=== PATIENT | female | born 1950 | race Caucasian/White ===

== ENCOUNTER → 2023-12-30 | Emergency (ER) | payer OTHER, BC ==
[~2023-12-30] MED LIST: FAMOTIDINE 20 MG/2 ML VIAL IV ONE; FOLIC ACID 5 MG/ML VIAL ONE; NA CHLORIDE 0.9% 1,000 ML ONE; TENECTEPLASE 50 MG/10 ML VIAL IV ONE
[2023-12-30 18:29] LABS: Absolute Eosinophils 0.1 K/uL (0-0.5); Absolute Lymphocytes (CBC) 1.6 K/uL (0.7-4.9); Basophils % 0.5 % (0-1.3); Eosinophils % 2.8 % (0-4.4); Hematocrit 38.3 % (36.0-45.0); Lymphocytes % 33.5 % (15.3-44.8); MCV 94.1 fL (80-100); MPV 7.3 fL (7.6-11.3); Platelets 235 thou/uL (152-406); RBC Red Blood Cell Count 4.07 M/uL (3.86-4.86)
[2023-12-30 18:37] LABS: Protime INR 0.97
--- NOTE | 2023-12-30 18:39 | ER ---
Nurse's Notes [facility] Name: Marita Roque Age: 73 yrs Sex: Female : 1950 Arrival Date: 12/30/2023 Time: 17:47 Bed 3 Private MD: Diagnosis: acute cerebrovascular accident Presentation: 12/29 18:12 Chief complaint: Patient states: pt was watching TV with her and suddenly pt as6 could not see parts of the tv. pt reports left arm sensation change. ERP notified of symptoms, code stroke called. symptoms started at 1630. Coronavirus screen: At this time, the client does not indicate any symptoms associated with coronavirus-19. Ebola Screen: No symptoms or risks identified at this time. Initial Sepsis Screen: Does the patient meet any 2 criteria? No. Patient's initial sepsis screen is negative. Does the patient have a suspected source of infection? No. Patient's initial sepsis screen is negative. Risk Assessment: Do you want to hurt yourself or someone else? Patient reports no desire to harm self or others. Onset of symptoms was December 30, 2023 at 16:30. 18:12 Acuity: JOSELYN 2 as6 18:12 Method Of Arrival: Ambulatory as6 Triage Assessment: 18:15 General: Appears in no apparent distress. Behavior is calm, cooperative, appropriate bp for age. Pain: Denies pain. Neuro: Level of Consciousness is awake, alert, obeys commands, Oriented to Appropriate for age. Historical: - Allergies: 18:11 Betadine; as6 18:11 Tetanus-Diphtheria Toxoids-Td; as6 18:11 Latex, Natural Rubber; as6 - PMHx: 18:11 breast cancer; lung cancer; as6 - PSHx: 18:11 breast; lung; as6 - Immunization history:: Adult Immunizations up to date. - Social history:: Smoking status: Patient denies any tobacco usage or history of. Screenin:12 [facility] ED Fall Risk Assessment (Adult) History of falling in the last 3 months, bp including since admission No falls in past 3 months (0 pts). Abuse screen: Denies threats or abuse. Denies injuries from another. Nutritional screening: No deficits noted. Tuberculosis screening: No symptoms or risk factors identified. Assessment: 18:15 Reassessment: CODE STROKE CALLED. bp 18:30 Reassessment: PT CONSENTED FOR TNKASE. TRANSFER INITIATED. bp Vital Signs: 18:00 BP 168 / 105; Pulse 78; Resp 18 S; Temp 97.6(TE); Pulse Ox 98% on R/A; Weight 65.77 kg bp (R); Height 5 ft. 4 in. (R); Pain 0/10; 18:45 BP 174 / 83; Pulse 70; Resp 16; Temp 98; Pulse Ox 99% ; jw7 20:18 BP 175 / 76; Pulse 71; Resp 18 S; Pulse Ox 99% on R/A; as6 18:00 Body Mass Index 24.89 (65.77 kg, 162.56 cm) bp 18:00 Pain Scale: Adult bp NIH Stroke Scale Scores: 18:09 NIHSS Score: 3 sb4 ED Course: 17:52 Patient arrived in ED. ra3 17:55 Tere Bledsoe PA-C is PHCP. sb4 17:55 Jay Chung MD is Attending Physician. sb4 17:59 Bertin Valdez, FRANCHESKA is Primary Nurse. bp 18:00 Arm band placed on. as6 18:[address] via stretcher. hb 18:11 Inserted saline lock: 20 gauge in right antecubital area, using aseptic technique. bp Blood collected. 18:12 Patient has correct armband on for positive identification. bp 18:15 Triage completed. as6 18:22 CT Head Angio In Process Unspecified. EDMS 18:22 CT Neck Angio In Process Unspecified. EDMS 18:22 CT Stroke Brain w/o Contrast In Process Unspecified. EDMS 18:25 initiated a transfer with Silvestre from the [facility]. eb 18:37 Stroke CXR 1 View In Process Unspecified. EDMS 18:[address] Gillis to [facility] ER. rv1 18:46 Pt request to be transferred to [facility], provider notified. rv1 18:50 Initiated transfer with Anne at [facility]. rv1 19:[address] De La Rosa to [facility] Neuro ICU #[id number]. rv1 19:54 Called Kandace with EMS, given 10-15 ETA. rv1 20:18 Provided Education on: need for transfer . as6 20:19 No provider procedures requiring assistance completed. Patient transferred, IV remains as6 in place. Administered Medications: 18:45 Drug: NS 0.9% IV 1000 ml IV at 1 bolus Per protocol; 1000 mL bolus Route: IV; Rate: 1 bp bolus; Site: right antecubital; 20:19 Follow up: Response: No adverse reaction; IV Status: Completed infusion; IV Intake: as6 1000ml 18:45 Drug: foLIC Acid IVPB 1 mg IVPB once Route: IVPB; Site: right antecubital; bp 20:19 Follow up: Response: No adverse reaction as6 20:19 Follow up: Response: No adverse reaction; IV Status: Completed infusion; IV Intake: [id number] 18:45 Drug: TNK FOR STROKE - Tenecteplase IV 0.25 mg/kg IV at per protocol once; MAX bp DOSE 25 mg, IVP over 5 seconds {Co-Signature: ko1 (Julianna Mccauley RN).} Route: IV; Rate: per protocol; Site: right antecubital; 20:20 Follow up: Response: No adverse reaction; IV Status: Completed infusion; IV Intake: 3ml as6 18:45 Drug: Famotidine IVP 20 mg IVP once; dilute with 10 mL 0.9% NaCl; give over 2 minutes bp Route: IVP; Site: right antecubital; 20:19 Follow up: Response: No adverse reaction as6 Medication: 20:18 VIS not applicable for this client. as6 Intake: 20:19 IV: 10ml; Total: 10ml. as6 20:19 IV: 1000ml; Total: 1010ml. as6 20:20 IV: 3ml; Total: 1013ml. as6 Outcome: 18:38 ER care complete, transfer ordered by MD. mann 20:18 Transferred by ground EMS to [facility], Transfer form completed. as6 X-rays sent w/ patient. 20:18 Condition: stable 20:18 Instructed on the need for transfer, 20:21 Patient left the ED. as6 NIH Stroke Scale - NIH Stroke Score Date: 12/30/2023 Time: 18:09 Total Score = 3 10. Dysarthria (speech clarity - read or repeat words) - 0(Normal) 11. Extinction and Inattention (visual/tactile/auditory/spatial/personal) - 0(No abnormality) 1a. Level of Consciousness (LOC) - 0(Alert) 1b. Level of Consciousness (LOC) (Month \T\ Age) - 0(Both) 1c. LOC Commands (Open \T\ Closes Eyes/Pen Rider) - 0(Both) 2. Best Gaze (Lateral Gaze Paresis) - 0(Normal) 3. Visual Field Loss - 2(Complete hemianopia) 4. Facial Palsy - 0(Normal) 5a. Left Arm: Motor (10-second hold) - 0(No drift) 5b. Right Arm: Motor (10-second hold) - 0(No drift) 6a. Left Leg: Motor (5-second hold - always test supine) - 0(No drift) 6b. Right Leg: Motor (5-second hold - always test supine) - 0(No drift) 7. Limb Ataxia (finger/nose \T\ heel/macias - test with eyes open) - 0(Absent) 8. Sensory Loss (pinprick arms/legs/face) - 1(Mild to moderate loss) 9. Best Language: Aphasia (description/naming/reading) - 0(No aphasia) Initials: sb4 Signatures: Dispatcher [employer] EDMS Jennie Green RN FRANCHESKA hb Bertin Valdez RN RN bp Pamela Jim eb Carlos Valle RN RN as6 Eva Howard, RN RN [id number] Tere Bledsoe, FRANCINE PARich sb4 Annie Moreno rv1 Mansi Kilgore ra3 Julianna Mccauley RN ko1 Corrections: (The following items were deleted from the chart) 18:44 18:00 BP 168 / 105; Pulse 78bpm; Resp 18bpm; Spontaneous; Pulse Ox 98% RA; Temp bp 97.6F Temporal; 65.77 kg Reported; Height 5 ft. 4 in. Reported; BMI: 24.8; Pain 0/10, Adult; as6 19:02 16:00 Reassessment: CODE STROKE CALLED bp 19:40 18:45 BP 174 / 8; Pulse 70bpm; Resp 16bpm; Pulse Ox 99%; Temp 98F; bp jw7 19:58 19:57 Initiated transfer with Anne [facility] rv1 rv1
--- NOTE | 2023-12-30 18:39 | EDPHYS ---
Physician Documentation [facility] Name: Marita Roque Age: 73 yrs Sex: Female : 1950 Arrival Date: 12/30/2023 Time: 17:47 Bed 3 Private MD: ED Physician Jay Chung HPI: 12/29 18:12 This 73 yrs old Female presents to ER via Unassigned with complaints of stroke like sb4 symptoms. 18:13 The patient's problem is reported as paresthesias, in left upper extremity, visual sb4 difficulty, decreased visual field. Onset: The symptoms/episode began/occurred 1.5 hour(s) ago. Duration: The episode is continuous. Context: the episode(s) was witnessed, by family, , symptoms became apparent at 16:30. occurred at home, occurred while the patient was at rest. The symptoms are alleviated by nothing. The symptoms are aggravated by nothing. Associated signs and symptoms: The patient has no apparent associated signs or symptoms. Patient's baseline: Neuro: alert and fully oriented, Motor: no deficits, Ambulation: walks without assistance, Speech: normal. The patient has not experienced similar symptoms in the past. The patient has not recently seen a physician. Historical: - Allergies: 18:11 Betadine; as6 18:11 Tetanus-Diphtheria Toxoids-Td; as6 18:11 Latex, Natural Rubber; as6 - PMHx: 18:11 breast cancer; lung cancer; as6 - PSHx: 18:11 breast; lung; as6 - Immunization history:: Adult Immunizations up to date. - Social history:: Smoking status: Patient denies any tobacco usage or history of. ROS: 18:13 Constitutional: Negative for fever, chills, and weight loss, sb4 18:13 Neuro: Positive for numbness, tingling, visual changes, 18:13 All other systems are negative, Exam: 18:13 Constitutional: This is a well developed, well nourished patient who is awake, alert, sb4 and in no acute distress. Head/Face: Normocephalic, atraumatic. ENT: Mucous membranes moist. Cardiovascular: Regular rate and rhythm with a normal S1 and S2. Respiratory: Lungs have equal breath sounds bilaterally, clear to auscultation and percussion. No rales, rhonchi or wheezes noted. No increased work of breathing, no retractions or nasal flaring. Abdomen/GI: Soft, non-tender, no distension. Skin: Warm, dry with normal turgor. Normal color with no rashes, no lesions, and no evidence of cellulitis. MS/ Extremity: Pulses equal, no cyanosis. Neurovascular intact. Full, normal range of motion. 18:13 Eyes: Pupils: equal, round, and reactive to light and accomodation, Extraocular movements: intact throughout, 18:18 Radiologist reports: negative sb4 18:21 Neuro: Orientation: is normal, to person, place, time \T\ situation. Mentation: is sb4 normal, appropriate for stated age, Memory: is normal, appropriate for stated age, Cranial nerves: CN I not tested, bitemporal hemianopia noted, extraocular movements are intact, Facial palsy and sensory deficits are absent. no gross hearing deficit,. Nystagmus is absent. Speech is clear and appropriate. Motor: is normal, moves all fours, Sensation: numbness, tingling, that is mild, of the left arm, Gait: is steady, 19:06 ECG was reviewed by the Attending Physician. sarah Vital Signs: 18:00 BP 168 / 105; Pulse 78; Resp 18 S; Temp 97.6(TE); Pulse Ox 98% on R/A; Weight 65.77 kg bp (R); Height 5 ft. 4 in. (R); Pain 0/10; 18:45 BP 174 / 83; Pulse 70; Resp 16; Temp 98; Pulse Ox 99% ; jw7 20:18 BP 175 / 76; Pulse 71; Resp 18 S; Pulse Ox 99% on R/A; as6 18:00 Body Mass Index 24.89 (65.77 kg, 162.56 cm) bp 18:00 Pain Scale: Adult bp NIH Stroke Scale Scores: 18:09 NIHSS Score: 3 sb4 MDM: 17:56 Patient medically screened. sb4 18:19 Management of patient was discussed with the following: Respite Care Provider: Dr. Cruz, sb4 recommends administration of TNK. 18:40 Differential diagnosis: CVA, TIA, metabolic disorder, drug effects. Data reviewed: sb4 vital signs, nurses notes, lab test result(s), EKG, radiologic studies, I have discussed the patient's presentation/case with the attending Emergency Department Physician;. Consideration of Admission/Observation Patient was admitted/placed on observation. Historians other than the Patient: Spouse/Significant Other: . Counseling: I had a detailed discussion with the patient and/or guardian regarding the historical points, exam findings, and any diagnostic results supporting the discharge/admit diagnosis, the presence of at least one elevated blood pressure reading (>120/80) during this emergency department visit, radiology results, the need to transfer to another facility, for higher level of care, [facility] does not immediately have the required specialist. 12/30 17:11 ED course: patient requested to be transferred to [facility]. sb4 12/29 18:05 Order name: Basic Metabolic Panel; Complete Time: 18:47 sb4 12/29 18:05 Order name: CBC with Diff; Complete Time: 18:37 sb4 12/29 18:05 Order name: Hepatic Function; Complete Time: 18:47 sb4 12/29 18:05 Order name: High Sensitivity Troponin; Complete Time: 18:47 sb4 12/29 18:05 Order name: Magnesium; Complete Time: 18:47 sb4 12/29 18:05 Order name: Protime (+inr); Complete Time: 18:39 sb4 12/29 18:05 Order name: Ptt, Activated; Complete Time: 18:39 sb4 12/29 18:05 Order name: UDS; Complete Time: 20:20 sb4 12/29 18:23 Order name: Urine Culture [facility] 12/29 19:44 Order name: CREATININE WHOLE BLOOD; Complete Time: 19:45 EDMS 12/29 18:05 Order name: CT Head Angio; Complete Time: 18:47 sb4 12/29 18:05 Order name: CT Neck Angio; Complete Time: 18:47 sb4 12/29 18:05 Order name: CT Stroke Brain w/o Contrast; Complete Time: 18:41 sb4 12/29 18:05 Order name: Stroke CXR 1 View; Complete Time: 18:41 sb4 12/29 18:05 Order name: EKG; Complete Time: 18:06 sb4 12/29 18:05 Order name: Accucheck; Complete Time: 18:10 sb4 12/29 18:05 Order name: Cardiac monitoring; Complete Time: 18:10 sb4 12/29 18:05 Order name: EKG - Nurse/Tech; Complete Time: 18:56 sb4 12/29 18:05 Order name: IV Saline Lock; Complete Time: 18:10 sb4 12/29 18:05 Order name: Labs collected and sent; Complete Time: 18:10 sb4 12/29 18:05 Order name: NPO; Complete Time: 18:11 sb4 12/29 18:05 Order name: O2 Per Protocol; Complete Time: 18:11 sb4 12/29 18:05 Order name: O2 Sat Monitoring; Complete Time: 18:11 sb4 12/29 18:05 Order name: Stroke Swallow Screen; Complete Time: 18: sb4 EC/10 19:06 Rate is 69 beats/min. Rhythm is regular. QRS [place] is Normal. [place] interval is normal. QRS sarah interval is normal. QT interval is normal. No Q waves. T waves are Normal. No ST changes noted. Clinical impression: Normal ECG and No evidence of ischemia. Interpreted by me. Reviewed by me. Administered Medications: 18:45 Drug: NS 0.9% IV 1000 ml IV at 1 bolus Per protocol; 1000 mL bolus Route: IV; Rate: 1 bp bolus; Site: right antecubital; 20:19 Follow up: Response: No adverse reaction; IV Status: Completed infusion; IV Intake: as6 1000ml 18:45 Drug: foLIC Acid IVPB 1 mg IVPB once Route: IVPB; Site: right antecubital; bp 20:19 Follow up: Response: No adverse reaction as6 20:19 Follow up: Response: No adverse reaction; IV Status: Completed infusion; IV Intake: [id number] 18:45 Drug: TNK FOR STROKE - Tenecteplase IV 0.25 mg/kg IV at per protocol once; MAX bp DOSE 25 mg, IVP over 5 seconds {Co-Signature: ko1 (Julianna Mccauley RN).} Route: IV; Rate: per protocol; Site: right antecubital; 20:20 Follow up: Response: No adverse reaction; IV Status: Completed infusion; IV Intake: 3ml as6 18:45 Drug: Famotidine IVP 20 mg IVP once; dilute with 10 mL 0.9% NaCl; give over 2 minutes bp Route: IVP; Site: right antecubital; 20:19 Follow up: Response: No adverse reaction as6 Disposition Summary: 12/30/23 18:38 Transfer Ordered Notes: Reason: Higher level of care sb4 Condition: Serious sb4 Problem: new sb4 Symptoms: are unchanged sb4 Transfer Location: [facility](12/30/23 19:19) sb4 Accepting Physician: neuro(12/30/23 20:21) as6 Diagnosis - acute cerebrovascular accident sb4 Forms: - Medication Reconciliation Form sb4 - SBAR form sb4 Critical care time excluding procedures: 18:40 Critical care time: Bedside Care: 15 minutes, Consultation: 10 minutes, Family sb4 Intervention: 5 minutes. Total time: 30 minutes NIH Stroke Scale - NIH Stroke Score Date: 12/30/2023 Time: 18:09 Total Score = 3 10. Dysarthria (speech clarity - read or repeat words) - 0(Normal) 11. Extinction and Inattention (visual/tactile/auditory/spatial/personal) - 0(No abnormality) 1a. Level of Consciousness (LOC) - 0(Alert) 1b. Level of Consciousness (LOC) (Month \T\ Age) - 0(Both) 1c. LOC Commands (Open \T\ Closes Eyes/Renovator Machine Operator) - 0(Both) 2. Best Gaze (Lateral Gaze Paresis) - 0(Normal) 3. Visual Field Loss - 2(Complete hemianopia) 4. Facial Palsy - 0(Normal) 5a. Left Arm: Motor (10-second hold) - 0(No drift) 5b. Right Arm: Motor (10-second hold) - 0(No drift) 6a. Left Leg: Motor (5-second hold - always test supine) - 0(No drift) 6b. Right Leg: Motor (5-second hold - always test supine) - 0(No drift) 7. Limb Ataxia (finger/nose \T\ heel/macias - test with eyes open) - 0(Absent) 8. Sensory Loss (pinprick arms/legs/face) - 1(Mild to moderate loss) 9. Best Language: Aphasia (description/naming/reading) - 0(No aphasia) Initials: sb4 Signatures: Dispatcher [employer] EDMS Jay Chung MD MD cha Peltier, Brian, RN RN bp Carlos Valle RN RN as6 Tere Bledsoe PA-C PA-C sb4 Julianna Mccauley RN ko1 Corrections: (The following items were deleted from the chart) 18:38 neuro sb4 sb4 18:38 [facility] sb4 sb4 20: 19:19 neuro sb4 as6
--- NOTE | 2023-12-30 18:40 | RAD REPORT ---
EXAM DESCRIPTION: Lalito Single View12/30/2023 6:35 pm CLINICAL HISTORY: Numbness COMPARISON: none FINDINGS: The lungs appear clear of acute infiltrate. The heart is normal size IMPRESSION: No acute abnormalities displayed
--- NOTE | 2023-12-30 18:40 | RAD REPORT ---
EXAM DESCRIPTION: CT - Ct Stroke Brain Wo Cont - 12/30/2023 6:20 pm CLINICAL HISTORY: Numbness COMPARISON: none TECHNIQUE: Computed axial tomography of the head was obtained. All CT scans are performed using dose optimization technique as appropriate and may include automated exposure control or mA/KV adjustment according to patient size. FINDINGS: An intracranial bleed is not seen . The ventricles are normal in caliber. No extra-axial fluid collection is noted. Small low-density area deep white matter posterior right frontal lobe probably an old very small infa rction. Fluid within the sinuses/ mastoids is not seen. IMPRESSION: No acute intracranial abnormality is seen. If patient's symptoms persist MRI of the bra in would be recommended Dr Chung of the emergency room was notified at 6:17 p.m. December 30, 2023
[2023-12-30 18:43] LABS: Albumin 3.9 g/dL (3.4-5.0); Albumin/Globulin Ratio 1.1 (1.1-1.8); Anion Gap 8.9 mEq/L (5.0-15.0); Bilirubin Direct 0.1 mg/dL (0-0.2); Bilirubin Indirect, Calculated 0.2 mg/dL (0.2-0.8); Bilirubin Total 0.3 mg/dL (0.2-1.0); Globulin 3.5 g/dL (2.3-3.5); Magnesium 2.2 mg/dL (1.6-2.4); Potassium 3.9 mEq/L (3.5-5.1); Protein, Total 7.4 g/dL (6.4-8.2); Troponin High Sensitivity 6.7 pg/mL (<58.9)
--- NOTE | 2023-12-30 18:45 | RAD REPORT ---
EXAM DESCRIPTION: CTHead angio12/30/2023 6:20 pm CLINICAL HISTORY: numbness COMPARISON: none TECHNIQUE: 100 cc Isovue [address] angiogram of the head was obtained. 3D MIPS reconstruction performed. All CT scans are performed using dose optimization technique as appropriate and may include automated exposure control or mA/KV adjustment according to patient size. FINDINGS: The basilar, anterior cerebral, middle cerebral and posterior cerebral arteries do not dem onstrate a significant stenosis Mild calcified plaque distal internal carotid arteries An aneurysm is not seen No large vessel occlusion IMPRESSION: No significant abnormality is displayed
--- NOTE | 2023-12-30 18:46 | RAD REPORT ---
EXAM DESCRIPTION: Flaco Angio12/30/2023 6:20 pm CLINICAL HISTORY: Numbness COMPARISON: None TECHNIQUE: 100 cc Isovue [address] angiogram of the neck was obtained. 3D MIPS reconstruction performed. All CT scans are performed using dose optimization technique as appropriate and may include automated exposure control or mA/KV adjustment according to patient size. FINDINGS: Visualized aortic arch and great vessels unremarkable Moderate calcified plaque proximal right internal carotid artery. Mild calcified plaque proximal left internal carotid artery results in an approximately 35% stenosis Mild plaque common and external carotid arteries Vertebral arteries unremarkable No dissection is seen. Nascet crieria Mild stenosis 0 to 49 % Moderate stenosis 50-69% Severe stenosis 70-99% IMPRESSION: Moderate calcified plaque proximal right internal carotid artery resulting in an approximately 50% st enosis
[2023-12-30 20:17] LABS: Barbiturates NEGATIVE (NEGATIVE); Benzodiazepines NEGATIVE (NEGATIVE); Cocaine NEGATIVE (NEGATIVE); METHAMPHETAM NEGATIVE (NEGATIVE); Methadone NEGATIVE (NEGATIVE); Opiates NEGATIVE (NEGATIVE); Phencyclidine NEGATIVE (NEGATIVE); THC Cannibis NEGATIVE (NEGATIVE)
[2023-12-30 20:33] VITALS: BP 175/76; TEMP 98; O2SAT 99
== END ==
LOC: ER 17:47
DX: I63.9 Cerebral infarction, unspecified (principal); R29.703 NIHSS score 3; Z88.3 Allergy status to other anti-infective agents; Z88.7 Allergy status to serum and vaccine; Z91.040 Latex allergy status; Z91.048 Other nonmedicinal substance allergy status; Z85.3 Personal history of malignant neoplasm of breast; Z85.118 Personal history of other malignant neoplasm of bronchus and lung
CPT/HCPCS: 87088; 85025; 87086; 80048; 36415; 83735; 85610; 82565; 80076; 85730; 84484; 80307; 70496; 70498; 70450; 71045; 96374; Q9967; J3101; J7030; 92977; 96365; 96366; 96368; 96375; 99285